=== PATIENT | female | born 1945 | race Caucasian/White ===

== ENCOUNTER → 2018-06-24 09:11 | Outpatient (CLI) | payer MEDICARE, BC, SELFPAY ==
[2018-06-24 10:52] LABS: Thyroid Stimulating Hormone 0.02 uIU/mL (0.47-4.68)
[2018-06-24 14:53] LABS: Free T3, Triiodothyronine Free 3.69 pg/mL (2.77-5.27); Free T4, Direct Thyroxine 1.41 ng/dL (0.78-2.19)
== END ==
PROVIDERS: PCP Family Medicine; Visit Provider Family Medicine
DX: E03.9 Hypothyroidism, unspecified (principal)
CPT/HCPCS: 36415; 84439; 84443; 84481

== ENCOUNTER → 2018-09-03 14:10 | Outpatient (CLI) | payer MEDICARE, BC, SELFPAY ==
--- NOTE | 2018-09-03 | DI.MG.S_ITS ---
BILATERAL DIGITAL SCREENING MAMMOGRAM 3D/2D WITH CAD: 09/03/2018 CLINICAL: Routine screening. Family history of breast cancer. Comparison is made to exams dated: 06/18/2017 mammogram, 06/19/2016 mammogram, and 07/01/2013 mammogram - [facility]. The tissue of both breasts is heterogeneously dense. This may lower the sensitivity of mammography. Current study was also evaluated with a Computer Aided Detection (CAD) system. There is an asymmetry in the right breast middle depth outer region seen on the craniocaudal view only. There also is an asymmetry in the right breast posterior depth upper region seen on the mediolateral oblique view only. Additionally, there is an asymmetry in the right breast posterior depth upper region seen on the mediolateral oblique view only. No other significant masses, calcifications, or other findings are seen in either breast. There are linear scar markers on both breasts. IMPRESSION: INCOMPLETE: NEEDS ADDITIONAL IMAGING EVALUATION 1) The asymmetry in the right breast middle depth outer region seen on the craniocaudal view only is indeterminate. Additional views with possible ultrasound are recommended. 2) The asymmetry in the right breast posterior depth upper region seen on the mediolateral oblique view only is indeterminate. Additional views with possible ultrasound are recommended. 3) The asymmetry in the right breast posterior depth upper region seen on the mediolateral oblique view only is indeterminate. Additional views with possible ultrasound are recommended. This exam was interpreted at Station ID: [id number]. NOTE: For mammograms, a report in lay terms will be sent to the patient. Approximately 15% of breast malignancies will not be visualized mammographically. In the management of a palpable breast mass, a negative mammogram must not discourage biopsy of a clinically suspicious lesion. Electronically Signed By: Juvencio Perales M.D. ecl/:09/03/2018 23:50:58 letter sent: Additional Imaging Needed ACR BI-RADS Category 0: Incomplete 3340F
== END ==
PROVIDERS: PCP Family Medicine; Visit Provider Family Medicine
DX: Z12.31 Encounter for screening mammogram for malignant neoplasm of breast (principal); Z80.3 Family history of malignant neoplasm of breast
CPT/HCPCS: 77063; 77067

== ENCOUNTER → 2018-09-30 13:41 | Outpatient (CLI) | payer MEDICARE, BC, SELFPAY ==
--- NOTE | 2018-09-30 | DI.US.S_ITS ---
ULTRASOUND OF RIGHT BREAST: 09/30/2018 CLINICAL: Patient returns today to evaluate 2 densities in the right breast. Comparison is made to exams dated: 09/30/2018 mammogram, 09/03/2018 mammogram, 06/18/2017 mammogram, 06/19/2016 mammogram, 07/01/2013 mammogram - [facility], and 10/17/2011 mammogram - [facility]. Color flow and real-time ultrasound of the right breast were performed on the areas of interest. Gonzalez scale images of the real-time examination were reviewed. There is an irregular mass in the right breast at 11 o'clock posterior depth. This irregular mass is hypoechoic with posterior acoustic shadowing. Additionally, adjacent to this mass is a cluster of microcysts. These findings likely correlate with the focal asymmetry in the right breast at 11 o'clock. There is a benign normal lymph node in the right breast at 9 o'clock. This correlates with mammography findings. IMPRESSION: SUSPICIOUS OF MALIGNANCY The irregular mass in the right breast at 11 o'clock posterior depth is at a low suspicion for malignancy. An ultrasound guided biopsy is recommended. The cluster of microcysts in the right breast at 11 o'clock posterior depth is probably benign. Follow-up mammogram and ultrasound in 6 months is recommended. The normal lymph node in the right breast at 9 o'clock is benign. This exam was interpreted at Station ID: [id number]. SUMMARY: This was discussed with the patient by the radiologist Dr. Gonzalez at the time of the exam. Electronically Signed By: Lorie rubio/:09/30/2018 16:26:45 letter sent: Biopsy Required Ultrasound BI-RADS: 4a Suspicious abnormality - low suspicion for malignancy
--- NOTE | 2018-09-30 | DI.MG.S_ITS ---
UNILATERAL RIGHT DIGITAL DIAGNOSTIC MAMMOGRAM 3D/2D WITH ADDITIONAL VIEWS: 09/30/2018 CLINICAL: Additional evaluation requested from prior study. Family history of breast cancer. Comparison is made to exams dated: 09/03/2018 mammogram, 06/18/2017 mammogram, and 06/19/2016 mammogram - [facility]. The tissue of right breast is heterogeneously dense. This may lower the sensitivity of mammography. There is an oval mass in the right breast at 9 o'clock middle depth. This is seen in additional views. There also is a focal asymmetry in the right breast at 11 o'clock posterior depth. This is seen in additional views. Additionally, there is an asymmetry in the right breast posterior depth superior region seen on the mediolateral oblique view only. This is seen in additional views. No other significant masses or calcifications are seen in the breast. IMPRESSION: INCOMPLETE: NEEDS ADDITIONAL IMAGING EVALUATION The oval mass in the right breast at 9 o'clock middle depth and the focal asymmetry in the right breast at 11 o'clock posterior depth are indeterminate. A targeted ultrasound of the right breast is recommended and will be performed immediately following this exam. The asymmetry in the right breast posterior depth superior region seen on the mediolateral oblique view only is consistent with a lymph node and is benign. This exam was interpreted at Station ID: [id number]. NOTE: For mammograms, a report in lay terms will be sent to the patient. Approximately 15% of breast malignancies will not be visualized mammographically. In the management of a palpable breast mass, a negative mammogram must not discourage biopsy of a clinically suspicious lesion. Electronically Signed By: Lorie Munguia M.D. lk/:09/30/2018 15:55:15 letter sent: Additional Imaging Needed ACR BI-RADS Category 0: Incomplete 3340F
== END ==
PROVIDERS: PCP Family Medicine; Visit Provider Family Medicine
DX: R92.8 Other abnormal and inconclusive findings on diagnostic imaging of breast (principal); N63.11 Unspecified lump in the right breast, upper outer quadrant; Z80.3 Family history of malignant neoplasm of breast
CPT/HCPCS: 76642; 77065; G0279

== ENCOUNTER → 2018-10-22 09:41 | Outpatient (CLI) | payer MEDICARE, BC, SELFPAY ==
--- NOTE | 2018-10-22 | DI.MG.S_ITS ---
UNILATERAL RIGHT DIGITAL DIAGNOSTIC MAMMOGRAM: 10/22/2018 CLINICAL: Right breast mass. Post ultrasound biopsy clip placement. Comparison is made to exams dated: 09/30/2018 mammogram, 09/03/2018 mammogram, and 06/18/2017 mammogram - [facility]. The tissue of right breast is heterogeneously dense. This may lower the sensitivity of mammography. There is a marker clip in the appropriate position in the right breast at 11 o'clock middle depth. This marker clip placement is at the biopsy site. IMPRESSION: POST PROCEDURE MAMMOGRAM FOR MARKER PLACEMENT There was a successful marker clip placement in the right breast middle depth. This exam was interpreted at Station ID: [id number]. NOTE: For mammograms, a report in lay terms will be sent to the patient. Approximately 15% of breast malignancies will not be visualized mammographically. In the management of a palpable breast mass, a negative mammogram must not discourage biopsy of a clinically suspicious lesion. Electronically Signed By: Cricket leonard/:10/22/2018 13:26:00 ACR BI-RADS Category Post-procedure mammogram for marker placement
--- NOTE | 2018-10-22 | DI.US.S_ITS ---
MULTIPLE ULTRASOUND GUIDED BIOPSIES RIGHT BREAST USING VACUUM DEVICE WITH MARKING DEVICE INSERTED: 10/22/2018 CLINICAL: Right breast mass. PATIENT CONSENT: Risks (minor bleeding, infection, vasovagal reaction and repeat procedure), benefits and alternatives were explained to the patient and written informed consent was obtained. Correlation is made to exams dated: 09/30/2018 ultrasound, 09/30/2018 mammogram, and 09/03/2018 mammogram - [facility]. An ultrasound guided biopsy using real-time ultrasound was performed for the mass located in the right breast at 11 o'clock posterior depth. The skin was prepped in the usual manner. Local anesthetic was administered to the access site. A small incision was made in the breast. The abnormality was approached from the lateral aspect. A biopsy needle was placed adjacent to the abnormality under ultrasound guidance. Once the needle was documented to be in the correct location, three specimens were obtained using the Mammotome biopsy system. A clip was inserted into the biopsy cavity. The specimens were sent to the laboratory for pathological analysis. IMPRESSION: ULTRASOUND GUIDED BIOPSY BENIGN Ultrasound guided biopsy of the mass in the right breast at 11 o'clock posterior depth was successful. Pathology indicates benign fibrocystic changes (FC). Pathology results are concordant with imaging findings. A follow-up ultrasound in 6 months is recommended to demonstrate stability of the clustered microcysts seen on the breast ultrasound dated 09/30/18. This exam was interpreted at Station ID: [id number]. Cricket leonard,lk/:10/29/2018 17:46:20
--- NOTE | 2018-10-22 | PATH_ITS ---
[facility] Accession Number: [id number] . 01 Material submitted: . RIGHT BREAST . 01 Clinical history: . 10:30 12CM FROM NIPPLE . 02 Diagnosis: Right Breast Mass, Needle Core Biopsies: Breast parenchyma with fibrocystic changes. Negative for atypical hyperplasia, in situ or invasive carcinoma. Numerous additional sections examined. MRV/10/28/2018 . 02 Comment: As part of routine research associate quality control qc, Dr. Corley has reviewed select slides from this case and agrees with the above diagnosis. . 02 Electronically signed: . Guilherme Batres MD, PhD, Pathologist NPI- [id number] . 01 Gross description: . Received in formalin, labeled US BX breast perc w VAC device, are multiple fragments of fibrofatty tissue (2.0 x 1.5 x 0.2 cm in aggregate). Filtered and entirely submitted in cassette A1. Note: Approximate total fixation time in formalin-64 hours and 30 minutes calculated using a collection date of 10/22/2018 with a time in fixative of 1100 hours. ([id number]) /[facility] . 02 Pathologist provided ICD-10: N63.11 . 02 CPT . 570065 Performed at: 01 [facility] [address], [place], [place] [id number] MD Noman Patton MD Phone: [phone] Performed at: 02 [facility] [address] [place], [place] [id number] MD Rachel Corley MD Phone: [phone]
== END ==
PROVIDERS: PCP Family Medicine; Visit Provider Family Medicine
DX: N60.11 Diffuse cystic mastopathy of right breast (principal)
CPT/HCPCS: 19083; 77065; 88305

== ENCOUNTER → 2019-01-24 08:49 | Outpatient (CLI) | payer MEDICARE, SELFPAY ==
[2019-01-24 09:15] LABS: Add Manual Diff / Slide Review NO; Basophils Absolute Auto 0 /uL (0-100); Basophils Percent Auto 0.8 % (0-2); Eosinophils Absolute Auto 200 /uL (0-450); Eosinophils Percent Auto 3.7 % (2-4); Hematocrit 41.6 % (36-46); Hemoglobin 13.9 g/dL (12.0-16.0); Lymphocytes Absolute Auto 1600 /uL (1100-4500); Lymphocytes Percent Auto 29.9 % (25-40); Mean Corpuscular HGB Conc 33.3 % (30-36); Mean Corpuscular Hemoglobin 28.7 PG (26-34); Mean Corpuscular Volume 86.1 fL (80-100); Monocytes Absolute Auto 400 /uL (0-900); Monocytes Percent Auto 7.3 % (3-14); Neutrophils Absolute Auto 3200 /uL (1500-7000); Neutrophils Percent Auto 58.3 % (50-75); Platelet Count 233 X10^3/uL (150-400); Red Blood Cell Count 4.84 X10^6/uL (4.0-5.2); Red Cell Distribution Width 13.9 % (11.6-14.8); White Blood Cell Count 5.5 X10^3/uL (4.5-11.0)
[2019-01-24 09:37] LABS: HEMOLYSIS 16 (0-50); Iron 99 ug/dL (37-170)
[2019-01-24 09:39] LABS: Alanine Aminotransferase 45 IU/L (9-52); Albumin Globulin Ratio 1.4 (1.0-2.8); Alkaline Phosphatase 64 U/L (38-126); Aspartate Aminotransferase 30 IU/L (14-36); BUN Creatinine Ratio 26.7 (6-22); Bilirubin Total 0.4 mg/dL (0.2-1.3); Blood Urea Nitrogen 16 mg/dL (7-17); Calcium 9.3 mg/dL (8.4-10.2); Carbon Dioxide 29 mmol/L (22-32); Chloride 104 mmol/L (98-107); Cholesterol 218 mg/dL (140-199); Estimated Glomerular Filt Rate > 60.0 mL/min (>60); Globulin 2.9 g/dL (1.7-4.1); Glucose 108 mg/dL (80-110); HDL Cholesterol 53 mg/dL (40-60); HEMOLYSIS 16 (0-50); LDL Cholesterol Calculated 146 mg/dL (<100); Potassium 4.1 mmol/L (3.4-5.1); Sodium 141 mmol/L (137-145); Total Protein 6.9 g/dL (6.3-8.2); Triglycerides 96 mg/dL (35-150)
[2019-01-24 09:48] LABS: Percent Iron Saturation 28 % (15-50); Total Iron Binding Capacity 359 ug/dL (265-497); Transferrin 281 mg/dL (206-381)
[2019-01-24 10:44] LABS: Folate > 20.0 ng/mL (2.76-20.0); Vitamin B12 775 pg/mL (239-931)
== END ==
PROVIDERS: PCP Family Medicine; Visit Provider Dermatology
DX: L65.9 Nonscarring hair loss, unspecified (principal); Z82.49 Family history of ischemic heart disease and other diseases of the circulatory system; Z00.00 Encounter for general adult medical examination without abnormal findings
CPT/HCPCS: 36415; 80053; 80061; 82306; 82607; 82728; 82746; 83540; 83550; 85025

== ENCOUNTER → 2019-04-02 13:56 | Outpatient (CLI) | payer MEDICARE, SELFPAY ==
--- NOTE | 2019-04-02 | DI.MG.S_ITS ---
UNILATERAL RIGHT DIGITAL DIAGNOSTIC MAMMOGRAM 3D/2D SHORT-TERM FOLLOW-UP: 04/02/2019 CLINICAL: 6 month follow-up biopsy. Comparison is made to exams dated: 10/22/2018 ultrasound biopsy, 10/22/2018 mammogram, 09/30/2018 mammogram, and 06/18/2017 mammogram - [facility]. The tissue of right breast is heterogeneously dense. This may lower the sensitivity of mammography. There is a marker clip in the stable position in the right breast at 10 o'clock middle depth. No associated masses. Breast tissue morphologiy is stable. No other significant masses or calcifications are seen in the breast. IMPRESSION: INCOMPLETE: NEEDS ADDITIONAL IMAGING EVALUATION Marker clip in stable position in the right breast middle depth. No associated mass. Ultrasound is recommended to confirm and was performed immediately following this exam. This exam was interpreted at Station ID: [id number]. NOTE: For mammograms, a report in lay terms will be sent to the patient. Approximately 15% of breast malignancies will not be visualized mammographically. In the management of a palpable breast mass, a negative mammogram must not discourage biopsy of a clinically suspicious lesion. Electronically Signed By: Uzma pompa/:04/02/2019 15:07:39 ACR BI-RADS Category 0: Incomplete 3340F
--- NOTE | 2019-04-02 | DI.US.S_ITS ---
LIMITED ULTRASOUND OF RIGHT BREAST: 04/02/2019 CLINICAL: 6 month follow-up biopsy. Comparison is made to exams dated: 04/02/2019 mammogram, 10/22/2018 ultrasound biopsy, 10/22/2018 mammogram, 09/30/2018 ultrasound, 09/30/2018 mammogram, and 09/03/2018 mammogram - [facility]. Color flow and real-time ultrasound of the right breast 9-11 o'clock region were performed. The biopsied solid mass and marker are not well seen on today's study. There is a benign 5 mm cyst in the right breast at 10 o'clock middle depth. This cyst is hypoechoic with posterior acoustic enhancement. This abnormality is decreased in size. There are multiple smaller cysts indicentally noted. No solid masses. Color flow imaging demonstrates that there is no increase in vascularity. IMPRESSION: BENIGN There is no sonographic evidence of malignancy. The 5 mm cyst in the right breast is stable, benign. Return to annual mammogram screening schedule is recommended. Findings and recommendations were conveyed to the patient. This exam was interpreted at Station ID: [id number]. Electronically Signed By: Uzma pompa/:04/02/2019 15:16:42 letter sent: Normal Exam Ultrasound BI-RADS: 2 Benign
== END ==
PROVIDERS: PCP Family Medicine; Visit Provider Family Medicine
DX: R92.8 Other abnormal and inconclusive findings on diagnostic imaging of breast (principal); N60.01 Solitary cyst of right breast
CPT/HCPCS: 76642; 77065; G0279

== ENCOUNTER → 2020-09-28 11:26 | Outpatient (CLI) | payer MEDICARE, SELFPAY ==
--- NOTE | 2020-09-28 | DI.MG.S_ITS ---
BILATERAL DIGITAL SCREENING MAMMOGRAM 3D/2D WITH CAD: 09/28/2020 CLINICAL: Routine screening. Family history of breast cancer. Comparison is made to exams dated: 04/02/2019 mammogram, 10/22/2018 mammogram, 09/30/2018 mammogram, 09/03/2018 mammogram, and 06/18/2017 mammogram - [facility]. The tissue of both breasts is heterogeneously dense. This may lower the sensitivity of mammography. Current study was also evaluated with a Computer Aided Detection (CAD) system. There is an irregular high density asymmetry with fine calcifications in the right breast middle depth central to the nipple seen on the craniocaudal view only. This is more prominent. No other significant masses, calcifications, or other findings are seen in either breast. IMPRESSION: INCOMPLETE: NEEDS ADDITIONAL IMAGING EVALUATION The irregular high density asymmetry in the right breast is indeterminate. Additional views with possible ultrasound are recommended. This exam was interpreted at Station ID: [id number]. NOTE: For mammograms, a report in lay terms will be sent to the patient. Approximately 15% of breast malignancies will not be visualized mammographically. In the management of a palpable breast mass, a negative mammogram must not discourage biopsy of a clinically suspicious lesion. Electronically Signed By: Uzma pompa/garcia:09/28/2020 17:30:22 letter sent: Additional Imaging Needed ACR BI-RADS Category 0: Incomplete 3340F
== END ==
PROVIDERS: PCP Family Medicine; Referring Provider Family Medicine; Visit Provider Family Medicine
DX: Z12.31 Encounter for screening mammogram for malignant neoplasm of breast (principal); Z80.3 Family history of malignant neoplasm of breast
CPT/HCPCS: 77063; 77067

== ENCOUNTER → 2020-10-20 09:27 | Outpatient (CLI) | payer MEDICARE, SELFPAY ==
--- NOTE | 2020-10-20 | DI.MG.S_ITS ---
UNILATERAL RIGHT DIGITAL DIAGNOSTIC MAMMOGRAM 3D/2D WITH ADDITIONAL VIEWS: 10/20/2020 CLINICAL: Additional evaluation requested from prior study. Comparison is made to exams dated: 09/28/2020 mammogram, 04/02/2019 mammogram, 10/22/2018 mammogram, 09/03/2018 mammogram, 06/18/2017 mammogram, and 06/19/2016 mammogram - [facility]. The tissue of right breast is heterogeneously dense. This may lower the sensitivity of mammography. There is a biopsy clip in the right breast. There is a 5 mm high density focal asymmetry in the right breast at 12 o'clock middle depth. This is seen in additional views. No other significant masses or calcifications are seen in the breast. IMPRESSION: INCOMPLETE: NEEDS ADDITIONAL IMAGING EVALUATION The 5 mm high density focal asymmetry in the right breast is indeterminate. An ultrasound is recommended. This exam was interpreted at Station ID: [id number]. NOTE: For mammograms, a report in lay terms will be sent to the patient. Approximately 15% of breast malignancies will not be visualized mammographically. In the management of a palpable breast mass, a negative mammogram must not discourage biopsy of a clinically suspicious lesion. SUMMARY: Targeted ultrasound is recommended for further evaluation and will be scheduled immediately following this exam. Electronically Signed By: Juan Jose perez/garcia:10/20/2020 10:37:20 ACR BI-RADS Category 0: Incomplete 3340F
--- NOTE | 2020-10-20 | DI.US.S_ITS ---
LIMITED ULTRASOUND OF RIGHT BREAST: 10/20/2020 CLINICAL: Patient returns today to evaluate 2 focal asymmetries in the right breast. Comparison is made to exams dated: 10/20/2020 mammogram, 09/28/2020 mammogram, 04/02/2019 ultrasound, 04/02/2019 mammogram, 09/03/2018 mammogram, and 06/18/2017 mammogram - [facility]. Color flow and real-time ultrasound of the right breast were performed. Gonzalez scale images of the real-time examination were reviewed. There is a 0.5 cm x 0.4 cm x 0.5 cm cluster of cysts with a septated internal wall in the right breast at 12 o'clock middle depth 4 cm from the nipple. This cluster of cysts is hypoechoic with internal echoes. This correlates with mammography findings. There also is a 0.5 cm x 0.5 cm x 0.4 cm round complicated cyst in the right breast at 12 o'clock anterior depth 4 cm from the nipple. This round complicated cyst is hypoechoic with internal echoes. This correlates as an incidental finding. Adjacent to this cyst, there are additional cysts. IMPRESSION: PROBABLY BENIGN The 0.5 cm x 0.4 cm x 0.5 cm cluster of cysts in the right breast at 12 o'clock middle depth is probably benign. The 0.5 cm x 0.5 cm x 0.4 cm round complicated cyst in the right breast at 12 o'clock anterior depth is probably benign. A follow-up right mammogram and an ultrasound in 6 months is recommended to demonstrate stability. This exam was interpreted at Station ID: [id number]. Electronically Signed By: Juan Jose perez/garcia:10/20/2020 10:42:26 letter sent: Followup Recommended Ultrasound BI-RADS: 3 Probably benign
== END ==
PROVIDERS: PCP Family Medicine; Referring Provider Family Medicine; Visit Provider Family Medicine
DX: R92.8 Other abnormal and inconclusive findings on diagnostic imaging of breast (principal)
CPT/HCPCS: 76642; 77065; G0279

== ENCOUNTER → 2021-04-06 08:37 | Outpatient (CLI) | payer MEDICARE, SELFPAY ==
--- NOTE | 2021-04-06 | DI.US.S_ITS ---
ULTRASOUND OF RIGHT BREAST AND AXILLA: 04/06/2021 CLINICAL: Patient returns for short term follow-up of a probably benign mass in the right breast. Comparison is made to exams dated: 04/06/2021 mammogram, 10/20/2020 ultrasound, 10/20/2020 mammogram, 09/28/2020 mammogram, 04/02/2019 ultrasound, and 04/02/2019 mammogram - [facility]. Color flow and real-time ultrasound of the right breast axilla were performed. Gonzalez scale images of the real-time examination were reviewed. There is a 0.3 cm x 0.3 cm x 0.3 cm cluster of cysts with a septated internal wall in the right breast at 12 o'clock middle depth 4 cm from the nipple. This cluster of cysts is hypoechoic with internal echoes. These abnormalities are decreased in size and less prominent and correlates with mammography findings. There also is a 0.4 cm x 0.3 cm x 0.4 cm round complicated cyst in the right breast at 12 o'clock middle depth 4 cm from the nipple. This round complicated cyst is hypoechoic with internal echoes. This abnormality is not significantly changed and is an incidental finding. Adjacent to this cyst, there are additional cysts. No significant abnormalities were seen sonographically in the right axilla. IMPRESSION: PROBABLY BENIGN The 0.3 cm x 0.3 cm x 0.3 cm cluster of cysts in the right breast at 12 o'clock middle depth is probably benign. The 0.4 cm x 0.3 cm x 0.4 cm round complicated cyst in the right breast at 12 o'clock middle depth is consistent with a complicated cyst and is probably benign. A follow-up bilateral mammogram and a right ultrasound in 6 months is recommended to demonstrate stability. Findings and recommendations were conveyed to the patient during today's evaluation. This exam was interpreted at Station ID: [id number]. Electronically Signed By: Candido Harris M.D. aty/:04/06/2021 10:41:21 letter sent: Followup Recommended Ultrasound BI-RADS: 3 Probably benign
--- NOTE | 2021-04-06 | DI.MG.S_ITS ---
UNILATERAL RIGHT DIGITAL DIAGNOSTIC MAMMOGRAM 3D/2D SHORT-TERM FOLLOW-UP: 04/06/2021 CLINICAL: Patient returns for a 6 month follow up of the right breast. Comparison is made to exams dated: 10/20/2020 mammogram, 09/28/2020 mammogram, and 04/02/2019 mammogram - [facility]. The tissue of right breast is heterogeneously dense. This may lower the sensitivity of mammography. There is a biopsy clip in the right breast. Redemonstration of previously described 5 mm high density focal asymmetry in the right breast at 12 o'clock middle depth. This is not significantly changed. No other significant masses or calcifications are seen in the breast. IMPRESSION: INCOMPLETE: NEEDS ADDITIONAL IMAGING EVALUATION The 5 mm high density focal asymmetry in the right breast remains indeterminate. An ultrasound is recommended for further evaluation and is scheduled to immediately follow this examination. This exam was interpreted at Station ID: [id number]. NOTE: For mammograms, a report in lay terms will be sent to the patient. Approximately 15% of breast malignancies will not be visualized mammographically. In the management of a palpable breast mass, a negative mammogram must not discourage biopsy of a clinically suspicious lesion. Electronically Signed By: Candido Harris M.D. aty/:04/06/2021 09:32:51 ACR BI-RADS Category 0: Incomplete 3340F
== END ==
PROVIDERS: PCP Family Medicine; Referring Provider Family Medicine; Visit Provider Family Medicine
DX: R92.8 Other abnormal and inconclusive findings on diagnostic imaging of breast (principal); N60.01 Solitary cyst of right breast
CPT/HCPCS: 76642; 77065; G0279